=== PATIENT | female | born 1930 | race Caucasian/White ===

== ENCOUNTER 2016-06-04 17:00 | Inpatient (IN) | payer OTHER ==
[~2016-06-04] VITALS: Ht 165.1 cm; Wt 41.5 kg
--- NOTE | ~2016-06-04 | EKG ---
[address] [address] ELECTROCARDIOGRAM REPORT Name: RHONDAELENIESA COWAN Room #: 437-P [facility] IN M.R.#: [id number] Admission: 06/04/16 Attend Phys: Ned Eid MD Discharge: Date of : 34 Report #: [id number] THIS REPORT FOR: //name// [facility] Test Date: 2016-06-08 Test Time: 18:36:06 Pat Name: ESA PELLETIER Department: Room: 437 P Gender: F Paraprofessional Education Assistant: ALEX : 1930 Requested By: Ned Eid Order Number: [id number] MD: Kobi Patterson Measurements Intervals [place] Rate: 154 P: 116 CT: 74 QRS: 71 QRSD: 80 T: -70 QT: 281 QTc: 450 Interpretive Statements Atrial fibrillation Compared to ECG 06/07/2016 07:10:04 Early repolarization now present Possible ischemia now present Ventricular premature complex(es) no longer present Electronically Signed On 06-09-2016 8:26:00 MANAGER ORGANIZATIONAL by Kobi Patterson [email or web address] <ELECTRONICALLY SIGNED> By: Kobi Patterson MD 06/09/16 08 35 35 Kobi Patterson MD /[facility]
--- NOTE | ~2016-06-04 | EKG ---
[place] [address] [facility] [place] [address] ELECTROCARDIOGRAM REPORT Name: ESA PELLETIER Karime Room #: 420-P 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: : 1930 Requested By: Anjelica Swain Order Number: [id number] MD: Bro Thakur Measurements Intervals [place] Rate: 80 P: 88 NC: 146 QRS: 81 QRSD: 81 T: 183 QT: 372 QTc: 430 Interpretive Statements Sinus rhythm Multiple premature complexes, supraven Sinus pause Nonspecific repol abnormality, diffuse leads Compared to ECG 05/01/2016 07:52:25 Sinus pause now present Electronically Signed On 06-06-2016 14:07:37 ENROBING MACHINE FEEDER by Bro Thakur [email or web address] <ELECTRONICALLY SIGNED> By: Bro Thakur MD, [facility] 06/06/16 1407 1713 171 Bro Thakur MD, [facility] /EPI
--- NOTE | ~2016-06-04 | HC ---
[facility] [place] [address] CONSULTATION Name: ESA PELLETIER Room #: 437-P ADM IN M.R.#: [id number] Admission: 06/04/16 Attend Phys: Ned Eid MD Discharge: Date of : 34 Report #: [id number] THIS REPORT FOR: //name// CC: Oziel Eid DATE OF SERVICE: 06/07/2016 REASON FOR CONSULTATION: Acute respiratory failure. IMPRESSION: 1. Acute respiratory failure. 2. History of atrial fibrillation with rapid ventricular response. 3. Urinary tract infection. 4. Hypertension. 5. History of pulmonary embolus with IVC, per chart not a candidate for anticoagulation. 6. Bilateral femoral neck fracture status post pinning. PLAN: I agree with current therapy. Monitor on critical care telemetry, aerosol therapy has already written, speech therapy to see. We will follow up closely with you. Continue current antibiotics. HISTORY: An 85-year-old female appears discharged from hospital 05/10/2016 with acute nondisplaced impacted right subcapital femoral neck fracture, subacute mildly displaced left femoral neck fracture, 2 pulmonary emboli, severe COPD, chronic respiratory failure, malnutrition, hypothyroidism, PSVT, admitted to the hospital on 06/04 from with altered mental status. Today had rapid response for a heart rate and low O2 sat. We were called in consultation. CURRENT MEDICATIONS: Include Xopenex, diltiazem, Levaquin, Solu-Medrol, mirtazapine, Lovenox, Protonix, Synthroid, ipratropium. Prior records showed EF ____, PA systolic of 50. I discussed with nurse. FAMILY HISTORY: Noncontributory. SOCIAL HISTORY: Positive tobacco. Negative drugs of abuse. REVIEW OF SYSTEMS: History of hypertension, hypothyroidism, hip fractures, severe COPD, hypoxia, anxiety, pulmonary embolus, IVC filter, recurrent falls, SVT. PHYSICAL EXAMINATION: VITAL SIGNS: Temperature 98.3, pulse 103, respirations 20 earlier today, pulse was in the 140s, BP elevated at 141/105. [facility] [address] [place] [address] CONSULTATION Name: ESA PELLETIER Karime Room #: 437-P [facility] IN [facility].#: [id number] Admission: 06/04/16 Attend Phys: Ned Eid MD Discharge: Date of : 34 Report #: [id number] EYES: Negative icterus. LUNGS: Coarse bilaterally. HEART: Tachycardic. ABDOMEN: Bowel sounds present. EXTREMITIES: Showed trace edema, moved all extremities. ABG showed 7.45, pCO2 of 47, pO2 of 52 on 2 liters. Chest x-ray showed hyperinflation with atelectasis. BUN 13, creatinine 0.6. CBC pending. Hemoglobin was 10.5. MCV 101. Last TSH in April was 12.97. We will follow closely with you. <ELECTRONICALLY SIGNED> By: Elizabeth Rai MD 06/08/161910 1630 1908 Elizabeth Rai MD /nt
--- NOTE | ~2016-06-04 | EKG ---
[address] [address] ELECTROCARDIOGRAM REPORT Name: LIYAHESA Room #: 420-[facility] IN .R.#: [id number] Admission: 06/04/16 Attend Phys: Ned Eid MD Discharge: Date of : 34 Report #: [id number] THIS REPORT FOR: //name// [facility] Test Date: 2016-06-07 Test Time: 07:10:04 Pat Name: ESA PELLETIER Department: Room: 420 Gender: F News Producer: Ladi HUTCHINSON : 1930 Requested By: Ned Eid Order Number: [id number] MD: Kobi Patterson Measurements Intervals [place] Rate: 114 P: 87 AL: 157 QRS: 83 QRSD: 72 T: 45 QT: 280 QTc: 386 Interpretive Statements Sinus tachycardia Multiform ventricular premature complexes Electronically Signed On 06-07-2016 8:11:59 PROCESS SAFETY ENGINEERING TECHNOLOGIST by Kobi Patterson [email or web address] <ELECTRONICALLY SIGNED> By: Kobi Patterson MD 06/07/16 08 9 07 Kobi Patterson MD /[facility]
[2016-06-04 17:00] VITALS: BP 127/74
[~2016-06-04 17:00] MED LIST: ACCUNEB SO1.25 MG/1; AMLODIPINE; ATENOLOL 25 MG25 M1 PO; B12; CARDIZEM CD180 MG PO; DOCUSATE CALCI240 MG PO; ENOXAPARIN30 MG/0.1 SUBQ; ERYTHROMYCIN E3.5 G1 OPHTHALMIC; IPRATROPIU0.2 MG/1 M INH; KEFLEX500 MG PO; LEVOTHYROXINE 0.1 MG PO; LEVOXYL25 MCG; LISINOPRIL10 MG PO; LOPRESSOR50 PO; MIRALAX17 GM PO; NICOTINE TRANSD14 M1; NORVASC5 MG PO; OXYGEN MISCELL; PRINIVIL10 MG PO; PROMETHAZINE-C120 ML PO; TRAMADOL 50 MG50 MG PO; TYLENOL325 MG PO; VENTOLIN HFA 1818 GM; VITAMIN B-12500 MCG PO; VITAMIN D3; XANAX 0.25 MG0.25 MG PO; XOPENEX 0.63 MG/3 M1 INH
[2016-06-04 17:48] LABS: ABG SAMPLE TYPE ARTERIAL; BE(vivo) 5.6 mmol/L (-2 to +3); HCO3 31.4 mmol/L (22.0-26.0); LACTATE 0.95 mmol/L (0.5-2.0); O2(CT) 16.7 mL/dL (15.0-23.0); O2Hb 97.3 % (92.0-98.0); PCO2 51.2 mmHg (35.0-45.0); PO2 118.9 mmHg (80.0-100.0); pH 7.405 (7.360-7.450); sO2 98.3 % (92.0-98.0); tCO2 32.9 mmol/L (24.0-30.0)
[2016-06-04 17:49] LABS: STICK SITE R.RADIAL
[2016-06-04 18:13] LABS: HEMATOCRIT 35.8 % (37.0-47.0); HEMOGLOBIN 11.9 gm/dL (12.0-15.0); MCH 32.8 pg (26.0-34.0); MCHC 33.3 % (28.0-37.0); MCV 98.7 fL (80.0-100.0); PLATELET COUNT 237 thou/uL (150-400); RBC 3.63 mil/uL (4.20-5.00); RDW 14.4 % (10.5-14.5); WBC 13.2 thou/uL (4.0-11.0)
[2016-06-04 18:14] LABS: MANUAL DIFF YES
[2016-06-04 18:30] LABS: ANION GAP 6 mmol/L (7-16); BUN 31 mg/dL (7-18); CALCIUM 9.4 mg/dL (8.5-10.1); CHLORIDE 103 mmol/L (98-107); CO2 35 mmol/L (21-32); CREATININE 0.9 mg/dL (0.6-1.3); GLUCOSE 79 mg/dL (70-99); POTASSIUM 4.6 mmol/L (3.5-5.1); SODIUM 144 mmol/L (136-145)
[2016-06-04 18:44] LABS: ALBUMIN 2.3 g/dL (3.4-5.0); ALKALINE PHOSPHATASE 183 U/L (46-116); NT-PRO BRAIN NAT PEPTIDE 2833 pg/mL (<300); SGOT 21 U/L (15-37); SGPT 14 U/L (30-65); TOTAL BILIRUBIN 0.4 mg/dL (<0.1-1.0); TOTAL PROTEIN 6.7 g/dL (6.4-8.2); TROPONIN-I < 0.04 ng/mL (<0.04-0.07)
[2016-06-04 18:49] LABS: ABSOLUTE NEUTROPHILS 11.5 thou/uL (1.4-8.2); TOTAL CELL COUNT 100
[2016-06-04 19:14] LABS: URINE BILIRUBIN NEGATIVE (Negative); URINE BLOOD TRACE (Negative); URINE COLOR YELLOW; URINE GLUCOSE-RANDOM* NEGATIVE (Negative); URINE KETONES TRACE (Negative); URINE LEUKOCYTES-REFLEX TRACE (Negative); URINE PROTEIN (DIPSTICK) NEGATIVE (Negative); URINE SPECIFIC GRAVITY 1.025 (1.003-1.035); URINE UROBILINOGEN 0.2 E.U./dl (0.2-1.0)
[2016-06-04] MEDS ORDERED: TRAMADOL 50 MG50 MG PO (19:16)
[2016-06-04] MEDS ORDERED: XANAX 0.25 MG0.25 MG PO (19:16)
[2016-06-04] MEDS ORDERED: ENOXAPARIN30 MG/0.1 SUBQ (19:17)
[2016-06-04] MEDS ORDERED: LEVOTHYROXINE 0.1 MG PO (19:17)
[2016-06-04] MEDS ORDERED: XOPENEX0.63 MG/3 IH (19:18)
[2016-06-04] MEDS ORDERED: CERTAVITE WITH1 EAC1 PO (19:18)
[2016-06-04] MEDS ORDERED: IPRATROPIU0.2 MG/1 M IH (19:18)
[2016-06-04] MEDS ORDERED: DILTIAZEM 24HR180 M3 PO (19:19)
[2016-06-04] MEDS ORDERED: COLACE100 MG PO (19:19)
[2016-06-04] MEDS ORDERED: MIRTAZAPINE7.5 MG PO (19:19)
[2016-06-04] MEDS ORDERED: LOPRESSOR25 PO (19:20)
[2016-06-04] MEDS ORDERED: CALCIUM + D3 E1 EACH PO (19:20)
[2016-06-04 19:21] LABS: SQUAMOUS 4-10 Moderate /LPF (0-3); URINE RBC 0-2 Rare /HPF (0-2); URINE WBC-REFLEX 6-15 Few /HPF (0-5)
[2016-06-04] MEDS ORDERED: MIRALAX17 GM PO (19:21)
[2016-06-04 19:22] LABS: CASTS None Seen /LPF (None Seen); CRYSTALS None Seen /LPF (None Seen)
[2016-06-04 20:38] VITALS: BP 117/62
[2016-06-05 03:35] VITALS: BP 126/70
[2016-06-05 05:55] LABS: HEMATOCRIT 32.2 % (37.0-47.0); HEMOGLOBIN 10.5 gm/dL (12.0-15.0); MCHC 32.7 % (28.0-37.0); PLATELET COUNT 218 thou/uL (150-400); RBC 3.19 mil/uL (4.20-5.00); RDW 14.5 % (10.5-14.5); WBC 10.6 thou/uL (4.0-11.0)
[2016-06-05 06:13] LABS: MANUAL DIFF YES
[2016-06-05 06:26] LABS: ALBUMIN 1.8 g/dL (3.4-5.0); CALCIUM 8.7 mg/dL (8.5-10.1); CREATININE 0.7 mg/dL (0.6-1.3); MAGNESIUM 1.8 mg/dL (1.8-2.4); POTASSIUM 4.1 mmol/L (3.5-5.1); TOTAL BILIRUBIN 0.3 mg/dL (<0.1-1.0); TOTAL PROTEIN 5.5 g/dL (6.4-8.2)
[2016-06-05 07:42] VITALS: BP 124/82
[2016-06-05 09:52] LABS: ABSOLUTE NEUTROPHILS 9.2 thou/uL (1.4-8.2); TOTAL CELL COUNT 100
[2016-06-05 09:53] LABS: ANISOCYTOSIS SLIGHT
[2016-06-05 15:04] VITALS: BP 124/75
[2016-06-05 20:00] VITALS: BP 123/63
[2016-06-06 04:30] VITALS: BP 156/89
[2016-06-06 06:01] LABS: ALBUMIN 1.9 g/dL (3.4-5.0); CALCIUM 8.6 mg/dL (8.5-10.1); CREATININE 0.7 mg/dL (0.6-1.3); PHOSPHORUS 2.4 mg/dL (2.5-4.9); POTASSIUM 3.9 mmol/L (3.5-5.1)
[2016-06-06 07:32] VITALS: BP 137/55
[2016-06-06 12:35] VITALS: BP 126/82
[2016-06-06 16:21] VITALS: BP 151/85
[2016-06-06 20:00] VITALS: BP 138/79
[2016-06-07 04:00] VITALS: BP 159/102
[2016-06-07 06:07] LABS: ALBUMIN 3.6 g/dL (3.4-5.0); CREATININE 0.6 mg/dL (0.6-1.3); PHOSPHORUS 3.7 mg/dL (2.5-4.9); POTASSIUM 3.6 mmol/L (3.5-5.1)
[2016-06-07 07:06] VITALS: BP 165/110
[2016-06-07 15:32] LABS: ABG SAMPLE TYPE ARTERIAL; BE(vivo) 7.4 mmol/L (-2 to +3); HCO3 32.3 mmol/L (22.0-26.0); LACTATE 1.54 mmol/L (0.5-2.0); O2(CT) 13.1 mL/dL (15.0-23.0); O2Hb 85.2 % (92.0-98.0); PCO2 47.3 mmHg (35.0-45.0); PO2 52.4 mmHg (80.0-100.0); pH 7.452 (7.360-7.450); sO2 88.3 % (92.0-98.0); tCO2 33.7 mmol/L (24.0-30.0)
[2016-06-07 15:33] LABS: STICK SITE L.RADIAL
[2016-06-07 16:00] VITALS: BP 141/105
[2016-06-07 16:44] LABS: HEMATOCRIT 30.7 % (37.0-47.0); HEMOGLOBIN 10.4 gm/dL (12.0-15.0); MCH 33.5 pg (26.0-34.0); MCHC 33.8 % (28.0-37.0); PLATELET COUNT 227 thou/uL (150-400); RDW 14.4 % (10.5-14.5); WBC 9.4 thou/uL (4.0-11.0)
[2016-06-07 16:47] LABS: MANUAL DIFF YES
[2016-06-07 17:09] LABS: ABSOLUTE NEUTROPHILS 8.2 thou/uL (1.4-8.2); TOTAL CELL COUNT 100
[2016-06-07 17:25] LABS: TROPONIN-I < 0.04 ng/mL (<0.04-0.07)
[2016-06-07 18:15] VITALS: BP 148/83
[2016-06-07 19:55] VITALS: BP 141/81
[2016-06-07 23:46] VITALS: BP 151/85
[2016-06-08] VITALS (7 sets, daily range): BP systolic 121–157; BP diastolic 80–93
[2016-06-08 06:44] LABS: ALBUMIN 3.4 g/dL (3.4-5.0); CREATININE 0.8 mg/dL (0.6-1.3); PHOSPHORUS 3.1 mg/dL (2.5-4.9); POTASSIUM 3.7 mmol/L (3.5-5.1)
[2016-06-08 18:45] LABS: ABG SAMPLE TYPE ARTERIAL; HCO3 31.8 mmol/L (22.0-26.0); LACTATE 3.43 mmol/L (0.5-2.0); O2(CT) 15.6 mL/dL (15.0-23.0); O2Hb 98.1 % (92.0-98.0); PCO2 58.7 mmHg (35.0-45.0); PO2 190.5 mmHg (80.0-100.0); STICK SITE R.RADIAL; pH 7.352 (7.360-7.450); sO2 99.2 % (92.0-98.0); tCO2 33.6 mmol/L (24.0-30.0)
[2016-06-09 04:42] VITALS: BP 148/98
[2016-06-09 08:32] VITALS: BP 138/97
[2016-06-09 11:25] VITALS: BP 137/50
[2016-06-09 17:34] VITALS: BP 133/83
[2016-06-09 20:14] VITALS: BP 142/94
[2016-06-10 04:47] LABS: ALBUMIN 2.9 g/dL (3.4-5.0); CALCIUM 8.7 mg/dL (8.5-10.1); CREATININE 0.7 mg/dL (0.6-1.3); PHOSPHORUS 3.9 mg/dL (2.5-4.9); POTASSIUM 4.3 mmol/L (3.5-5.1)
[2016-06-10 08:00] VITALS: BP 156/86
== END 2016-06-12 04:19 | DRG 871 ==
LOC: ER 17:00 → 4E 19:48 → EROBS 19:48 → 4E 20:39 → 4S 06-07 18:25
PROVIDERS: Emergency Medicine; Hospitalist; Internal Medicine Pulmonary Disease; Nurse Practitioner
DX: A41.9 Sepsis, unspecified organism (principal); J15.9 Unspecified bacterial pneumonia; J96.21 Acute and chronic respiratory failure with hypoxia; G92 Toxic encephalopathy; S72.001A Fracture of unspecified part of neck of right femur, initial encounter for closed fracture; S72.002A Fracture of unspecified part of neck of left femur, initial encounter for closed fracture; N39.0 Urinary tract infection, site not specified; I47.2 Ventricular tachycardia; J44.1 Chronic obstructive pulmonary disease with (acute) exacerbation; R65.11 Systemic inflammatory response syndrome (SIRS) of non-infectious origin with acute organ dysfunction; R65.10 Systemic inflammatory response syndrome (SIRS) of non-infectious origin without acute organ dysfunction; F17.210 Nicotine dependence, cigarettes, uncomplicated; E86.0 Dehydration; B96.1 Klebsiella pneumoniae [K. pneumoniae] as the cause of diseases classified elsewhere; F03.90 Unspecified dementia, unspecified severity, without behavioral disturbance, psychotic disturbance, mood disturbance, and anxiety; I12.9 Hypertensive chronic kidney disease with stage 1 through stage 4 chronic kidney disease, or unspecified chronic kidney disease; N18.9 Chronic kidney disease, unspecified; E03.9 Hypothyroidism, unspecified; I48.91 Unspecified atrial fibrillation; Z88.6 Allergy status to analgesic agent; Z86.711 Personal history of pulmonary embolism; Z79.899 Other long term (current) drug therapy; Z87.81 Personal history of (healed) traumatic fracture; Z66 Do not resuscitate; Z51.5 Encounter for palliative care
CPT/HCPCS: 10100; 10102; 10183